=== PATIENT | male | born 1990 | race American Indian/Alaskan Native ===

== ENCOUNTER 2017-06-01 04:18 | Emergency (ER) | payer OTHER ==
[2017-06-01] MEDS ORDERED: BOOSTRIX IM ONE (06:19)
[2017-06-01] MEDS ORDERED: NORCO 5/325 PO ONE (06:19)
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
--- NOTE | 2017-06-01 07:35 | Cat Scan Report ---
FINAL REPORT EXAM: CT FACIAL BONES WO CON HISTORY: ? left sided jaw fracture TECHNIQUE: CT images are acquired through the face without contrast. Transaxial , coronal and sagittal reformations are provided. PRIORS: None. FINDINGS: A left-sided zygomaticomaxillary complex fracture is present. The infraorbital fracture extends through the infraorbital foramen. A small amount of layering blood is present in the left maxillary sinus. The left extraocular muscles demonstrate normal morphology and a not appear involved in the fracture. No proptosis. Retro bulbar fat is unremarkable. There are 2 separate fractures extending through the zygomatic arch on axial series 2, image 74. Additionally, there is a fracture extending through the temporomandibular fossa on axial image 69. The mandible is intact. Remaining imaged paranasal sinuses are clear. No nasal bone fracture is seen. No significant deviation of the nasal septum. The pterygoid plates are intact. Extensive subcutaneous air and stranding extend through and around the left regulatory affairs internship and parotid spaces, and also involve the left parapharyngeal fat and infratemporal fossa. IMPRESSION: Left signal medical maxillary complex fracture. The left infraorbital component extends through the infraorbital foramen. There is an additional fracture extending through the anterolateral temporomandibular fossa. Extensive subcutaneous air and edema as detailed above.
[2017-06-01 08:45] VITALS: BP 132/81
== END 2017-06-01 08:44 | disposition home or self-care (01) ==
LOC: ED 04:18
DX: S02.82XB Fracture of other specified skull and facial bones, left side, initial encounter for open fracture (principal); V89.2XXA Person injured in unspecified motor-vehicle accident, traffic, initial encounter; Y93.89 Activity, other specified; Y92.89 Other specified places as the place of occurrence of the external cause; Y99.8 Other external cause status
CPT/HCPCS: 70450; 70486; 71045; 72125; 90471; 90715